=== PATIENT | female | born 1950 | race Caucasian/White ===

== ENCOUNTER 2016-11-12 13:21 | Emergency (ER) | payer OTHER ==
--- NOTE | 2016-11-12 14:16 | EDPHY ---
H & P Time Seen by Provider: 11/12/16 13:45 HPI/ROS: CHIEF COMPLAINT: Episode of unresponsiveness. HISTORY OF PRESENT ILLNESS: The patient is a 66-year old female with history of multiple TIAs and CVA, presenting with an episode of unresponsiveness. The patient was sitting in her chair and started staring off into space. She slumped to the left and appeared to have difficulty breathing. This lasted for a few seconds. Her called her name and she was able to respond immediately. Since then she has been at her baseline. The episode lasted a total of less than one minute. The patients last stroke was 3 years ago. She has persistent deficits from previous strokes, including difficulty with speech and difficulty ambulating. Of note, the patient has had URI symptoms for the past 4 days, she saw her PCP and was diagnosed with a viral URI. The cough is worsened since then and the patient's family is requesting antibiotics. No fever. REVIEW OF SYSTEMS: A comprehensive 10 point review of systems is otherwise negative aside from elements mentioned in the history of present illness. Past Medical/Surgical History: Multiple TIA, incontinence. Social History: Lives at home with and daughter. Smoking Status: Former smoker Physical Exam: General Appearance: Alert, pleasant Eyes: Pupils equal and round, no conjunctival pallor or injection ENT, Mouth: Mucous membranes moist Neck: Normal inspection Respiratory: Lungs are clear to auscultation Cardiovascular: Regular rate and rhythm Gastrointestinal: Abdomen is soft and non-tender Neurological: Able to answer yes, no questions and say her name. Follows commands. Motor/sensory intact. Gait not assessed. Skin: Warm and dry, no rash Extremities: Nontender, no pedal edema Psychiatric: Mood and affect normal Constitutional: Initial Vital Signs Temperature (C) 36.5 C 11/12/16 13:24 Heart Rate 66 11/12/16 13:24 Respiratory Rate 14 11/12/16 13:24 Blood Pressure 118/78 11/12/16 13:24 O2 Sat (%) 92 11/12/16 13:24 O2 Delivery Mode Room Air Allergies/Adverse Reactions: aspirin Allergy (Verified 04/15/16 09:43) Sulfa (Sulfonamide Antibiotics) Allergy (Verified 04/15/16 09:43) Home Medications: Medication Instructions Recorded Metoprolol Tartrate [Lopressor 25 25 mg PO BID 07/30/13 mg (*)] Omeprazole [Prilosec 20 mg] 40 mg PO BIDMEAL 07/30/13 Simvastatin [Zocor 20 mg] 20 mg PO HS 07/30/13 Clopidogrel Bisulfate [Plavix (*)] 75 mg PO DAILY 01/19/14 Losartan Potassium [Cozaar 50 mg 100 mg PO DAILY 01/19/14 (*)] Hydrochlorothiazide [HCTZ (*)] 12.5 mg PO DAILY #30 cap 01/20/14 Gabapentin [Neurontin 300 MG (*)] 300 mg PO HS 04/15/16 Azithromycin [Zithromax] 250 mg PO DAILY #6 tab 11/12/16 Medical Decision Making - Diagnostics Imaging Results: Imaging Impressions Chest X-Ray 11/12/16 13:46 Impression: 1. Atherosclerotic tortuous aorta. 2. No acute pulmonary disease. Imaging: I viewed and interpreted images myself ED Course/Re-evaluation: The patient is a 66-year-old female with history of multiple TIAs, who presents with an episode of brief unresponsiveness. Her daughter thinks that she simply fell asleep, though her does not think so. In any case, I do not suspect TIA at this time, given lack of focal neurologic symptoms and very brief duration of unresponsiveness. I think that seizure is unlikely. However, if she has recurrent symptoms, she will follow up with her primary care physician and possibly a neurologist. I will have patient followup with her primary care physician. Chest x-ray is negative for pneumonia. The patient remains asymptomatic and is at her baseline. She is able to ambulate with steady gait. She will follow up with her primary care physician. At the patient's family's request, I wrote a prescription for Zithromax. There is no evidence of pneumonia. Differential Diagnosis: Altered mental status including but not limited to hypoglycemia, infectious process, electrolyte abnormality, head injury and intoxicants. - Data Points Laboratory Results: Laboratory Results 11/12/16 14:22 11/12/16 14:22 11/12/16 11/12/16 14:22 14:22 WBC 9.96 10^3/uL H 10^3/uL (3.80-9.50) RBC 4.96 10^6/uL 10^6/uL (4.18-5.33) Hgb 15.0 g/dL g/dL (12.6-16.3) Hct 45.1 % % (38.0-47.0) MCV 90.9 fL fL (81.5-99.8) MCH 30.2 pg pg (27.9-34.1) MCHC 33.3 g/dL g/dL (32.4-36.7) RDW 13.6 % % (11.5-15.2) Plt Count 293 10^3/uL 10^3/uL (150-400) MPV 10.4 fL fL (8.7-11.7) Neut % (Auto) 49.4 % % (39.3-74.2) Lymph % (Auto) 33.7 % % (15.0-45.0) [place] % (Auto) 11.0 % % (4.5-13.0) Eos % (Auto) 4.9 % % (0.6-7.6) Baso % (Auto) 0.7 % % (0.3-1.7) Nucleat RBC Rel Count 0.0 % % (0.0-0.2) Absolute Neuts (auto) 4.91 10^3/uL 10^3/uL (1.70-6.50) Absolute Lymphs (auto) 3.36 10^3/uL H 10^3/uL (1.00-3.00) Absolute Monos (auto) 1.10 10^3/uL H 10^3/uL (0.30-0.80) Absolute Eos (auto) 0.49 10^3/uL H 10^3/uL (0.03-0.40) Absolute Basos (auto) 0.07 10^3/uL 10^3/uL (0.02-0.10) Absolute Nucleated RBC 0.00 10^3/uL 10^3/uL (0-0.01) Immature Gran % 0.3 % % (0.0-1.1) Immature Gran # 0.03 10^3/uL 10^3/uL (0.00-0.10) Sodium 145 mEq/L H mEq/L (134-144) Potassium 3.5 mEq/L mEq/L (3.5-5.2) Chloride 103 mEq/L mEq/L (97-110) Carbon Dioxide 28 mEq/l mEq/l (22-31) Anion Gap 14 mEq/L mEq/L (8-16) BUN 24 mg/dL H mg/dL (7-23) Creatinine 1.1 mg/dL H mg/dL (0.6-1.0) Estimated GFR 49 Glucose 103 mg/dL H mg/dL (70-100) Calcium 9.4 mg/dL mg/dL (8.5-10.4) Departure - Departure Disposition: Home, Routine, Self-Care Clinical Impression: Bronchitis, Episode of unresponsiveness Condition: Good Instructions: Acute Bronchitis (ED) Additional Instructions: Followup with your primary care physician for further evaluation. If patient's cough persists, start the Azithromycin. Take the full course of antibiotic as directed. Referrals: Radha Allen MD [Primary Care Provider] - As per Instructions Prescriptions: Azithromycin [Zithromax] 250 mg PO DAILY #6 tab Report Scribed for: Verónica Buchanan Report Scribed by: Conchita Estrada Date of Report: 11/12/16 Time of Report: 14:00 Physician Review and Approval Statement: 11/12/16 14:01 Portions of this note were transcribed by a medical coding instructor. I personally performed the history, physical exam, and medical decision-making; and confirmed the accuracy of the information in the transcribed note.
[2016-11-12 14:32] LABS: % IMMATURE GRANULYOCYTES 0.3 % (0.0-1.1); ABSOLUTE IMMATURE GRANULOCYTES 0.03 10^3/uL (0.00-0.10); ADD DIFF? NO; ADD MORPH? NO; ADD SCAN? NO; ATYPICAL LYMPHOCYTE FLAG 10 (0-99); FRAGMENT RBC FLAG 0 (0-99); HEMATOCRIT 45.1 % (38.0-47.0); LEFT SHIFT FLG 0 (0-99); LIPEMIA HEMOLYSIS FLAG 80 (0-99); MEAN CELL HEMOGLOBIN 30.2 pg (27.9-34.1); MEAN CELL HEMOGLOBIN CONCENTR. 33.3 g/dL (32.4-36.7); MEAN CELL VOLUME 90.9 fL (81.5-99.8); MEAN PLATELET VOLUME 10.4 fL (8.7-11.7); PLATELET CLUMPS FLAG 0 (0-99); PLATELET COUNT 293 10^3/uL (150-400); RED BLOOD CELL COUNT 4.96 10^6/uL (4.18-5.33); RED CELL DISTRIBUTION WIDTH 13.6 % (11.5-15.2)
--- NOTE | 2016-11-12 14:36 | CPEKG ---
Heart Rate: 58 RR Interval: 1034 P-R Interval: 220 QRSD Interval: 102 QT Interval: 460 QTC Interval: 452 P [place]: 44 QRS [place]: 2 T Wave [place]: 68 EKG Severity - ABNORMAL ECG - EKG Impression: SINUS RHYTHM EKG Impression: FIRST DEGREE AV BLOCK EKG Impression: BORDERLINE T ABNORMALITIES, ANTERIOR LEADS Electronically Signed By: Verónica Buchanan 12-Nov-2016 20:28:37
[2016-11-12 14:52] LABS: ANION GAP 14 mEq/L (8-16); CALCIUM 9.4 mg/dL (8.5-10.4); CARBON DIOXIDE 28 mEq/l (22-31); CHLORIDE 103 mEq/L (97-110); CREATININE 1.1 mg/dL (0.6-1.0); GLOMERULAR FILTRATION RATE 49; GLUCOSE 103 mg/dL (70-100); POTASSIUM 3.5 mEq/L (3.5-5.2); SODIUM 145 mEq/L (134-144)
[2016-11-12 15:23] VITALS: BP 118/74; PULSE 80; RESP 16; TEMP 97.9; O2SAT 94
== END 2016-11-12 15:23 | disposition home or self-care (01) ==
DX: R40.1 Stupor (principal); J20.9 Acute bronchitis, unspecified; Z87.891 Personal history of nicotine dependence

== ENCOUNTER → 2018-10-10 | Outpatient (CLI) | payer OTHER ==
[~2018-10-10] MED LIST: IOPAMIDOL (ISOVUE-300) 100 ML BTL ONE
== END ==
LOC: FIMAGING 15:09
PROVIDERS: ATTEND Urology
DX: R31.0 Gross hematuria (principal); N13.2 Hydronephrosis with renal and ureteral calculous obstruction; N28.89 Other specified disorders of kidney and ureter
CPT/HCPCS: 74178; Q9967

== ENCOUNTER 2018-10-13 05:45 | Day surgery (SDC) | payer OTHER ==
[2018-10-13] MEDS ORDERED: VANCOMYCIN HCL/NORMAL SALINE 250 ML IV ONE (06:19)
[2018-10-13] MEDS ORDERED: PIPERACILLIN/TAZO 3.375 GM/DEX 50 ML IV ONE ×2 (06:19→08:45)
[2018-10-13] MEDS ORDERED: LR 1,000 ML IV ONE (06:25)
--- NOTE | 2018-10-13 07:07 | PDANEPAE ---
ANE History of Present Illness cystoscopy, ureteral stent ANE Past Medical History - Cardiovascular History Hx Hypertension: Yes Hx Arrhythmias: No Hx Chest Pain: No Hx Coronary Artery / Peripheral Vascular Disease: Yes Hx CHF / Valvular Disease: No Hx Palpitations: No Cardiovascular History Comment: left bundle branch block - Pulmonary History Hx COPD: No Hx Asthma/Reactive Airway Disease: No Hx Recent Upper Respiratory Infection: No Hx Oxygen in Use at Home: No Hx Sleep Apnea: No Sleep Apnea Screening Result - Last Documented: Negative - Neurologic History Hx Cerebrovascular Accident: Yes Hx Seizures: No Hx Dementia: No Neurologic History Comment: CVA , left sided weakness, only soft foods, chokes easily, difficulty to understand speech ,. fractured skull with fall 45 years ago history of TIA's - Endocrine History Hx Diabetes: No - Renal History Hx Renal Disorders: Yes Renal History Comment: kidney stone current and history of stone, wears depends , cloudy urine - Liver History Hx Hepatic Disorders: No - Neurological & Psychiatric Hx Hx Neurological and Psychiatric Disorders: No - Cancer History Hx Cancer: No - Congenital Disorder History Hx Congenital Disorders: No - GI History Hx Gastrointestinal Disorders: No Gastrointestinal History Comment: bleeding ulcers history - Other Health History Other Health History: missing all teeth, no dentures, bruises easily - Chronic Pain History Chronic Pain: No (unable to state pain level) - Surgical History Prior Surgeries: ulcer repair, kidney stone removal ANE Review of Systems Review of systems is: negative Review of Systems: - Exercise capacity METS (RN): 2 METS ANE Patient History - Allergies Allergies/Adverse Reactions: aspirin Allergy (Verified 10/12/18 14:48) Other-Enter Comments meperidine Allergy (Verified 10/12/18 14:48) Unknown Sulfa (Sulfonamide Antibiotics) Allergy (Verified 10/12/18 14:48) Unknown - Home Medications Home medications: home medication list seen and reviewed Home Medications: Metoprolol Tartrate [Lopressor 25 mg (*)] BID 07/30/13 [Last Taken 10/13/18] Omeprazole [Prilosec 20 mg] BIDMEAL 07/30/13 [Last Taken 10/13/18] Simvastatin [Zocor 20 mg] HS 07/30/13 [Last Taken 10/12/18] Clopidogrel Bisulfate [Plavix (*)] DAILY 01/19/14 [Last Taken 10/12/18] Losartan Potassium [Cozaar 50 mg (*)] DAILY 01/19/14 [Last Taken 10/13/18] Gabapentin [Neurontin 300 MG (*)] HS 04/15/16 [Last Taken 04/14/16] Doxycycline Calcium 10/12/18 [Last Taken 10/13/18] Hydrochlorothiazide [HCTZ (*)] DAILY 10/12/18 [Last Taken 10/12/18] - NPO status NPO Status: no food or drink >8 hours NPO Since - Liquids (Date): 10/12/18 NPO Since - Liquids (Time): 21:00 NPO Since - Solids (Date): 10/12/18 NPO Since - Solids (Time): 21:30 - Anes Hx Anes Hx: no prior problems - Smoking Hx Smoking Status: Former smoker - Family Anes Hx Family Anes Hx: none Family Hx Anesthesia Complications: none ANE Labs/Vital Signs - Vital Signs Vital Signs: reviewed preoperatively; see RN documention for details Blood Pressure: 134/87 Heart Rate: 57 Respiratory Rate: 18 O2 Sat (%): 93 Height: 162.56 cm Weight: 74.843 kg ANE Physical Exam - Airway Neck exam: FROM Mallampati Score: Class 1 Mouth exam: poor dentition - Pulmonary Pulmonary: no respiratory distress - Cardiovascular Cardiovascular: regular rate and rhythym - ASA Status ASA Status: III ANE Anesthesia Plan Anesthesia Plan: GA w LMA
[2018-10-13] MEDS ORDERED: LIDOCAINE 2% JELLY 20 ML (UROJECT) ONE (07:14)
[2018-10-13] MEDS ORDERED: IOPAMIDOL (ISOVUE-M 300) 15 ML VIAL ONE (07:15)
--- NOTE | 2018-10-13 07:19 | PDHPUP ---
History & Physical Update H&P update statement: This history and physical update is based on an assessment of the patient which was completed after admission or registration (within 24 hours), but prior to the surgery/procedure. H&P update: H&P reviewed & patient examined, no change in patient's condition since H&P completed
[2018-10-13] MEDS ORDERED: PROPOFOL 200 MG/20 ML VIAL ONE (07:29)
[2018-10-13] MEDS ORDERED: ONDANSETRON 4 MG/2 ML VIAL ONE (07:29)
[2018-10-13] MEDS ORDERED: DEXAMETHASONE 4 MG/ML VIAL ONE (07:29)
[2018-10-13] MEDS ORDERED: LIDOCAINE 2% 100 MG/5 ML SYR ONE (07:29)
[2018-10-13] MEDS ORDERED: fentaNYL 100 MCG/2 ML INJ ONE (07:29)
[2018-10-13] MEDS ORDERED: OPIUM/BELLADONNA ALKALO SUPP PR ONE (07:32)
[2018-10-13] MEDS ORDERED: ePHEDrine SULFATE 25 MG/5 ML SYR ONE (07:46)
[2018-10-13] MEDS ORDERED: PHENYLEPHRINE HCL 100 MCG/ML SYR ONE (07:53)
[2018-10-13] MEDS ORDERED: ONDANSETRON 4 MG/2 ML VIAL IVP PRN (07:57)
[2018-10-13] MEDS ORDERED: NALOXONE HCL 0.4 MG/ML INJ IVP PRN (07:57)
[2018-10-13] MEDS ORDERED: HYDROCODONE/APAP 5/325 TAB PO PRN (07:57)
[2018-10-13] MEDS ORDERED: DEXAMETHASONE 4 MG/ML VIAL IVP PRN (07:57)
[2018-10-13] MEDS ORDERED: LABETALOL HCL 5 MG/ML 20 ML MDV IVP PRN (07:57)
[2018-10-13] MEDS ORDERED: oxyCODONE IR 5 MG TAB PO PRN (07:57)
[2018-10-13] MEDS ORDERED: fentaNYL 100 MCG/2 ML INJ IVP PRN (07:57)
--- NOTE | 2018-10-13 07:57 | POSTANESTH ---
Post Anesthetic Evaluation Cardiovascular Status: Similar to Pre-Op Cond Respiratory Status: Similar to Pre-op Cond. Level of Consciousness/Mental Status: Can Participate in Eval, Moderately Sleepy Pain Control: Adequate, Prn Tx Ordered Nausea/Vomiting Control: Adequate, Prn Tx Ordered Complications Possibly Related to Anesthesia: None Noted
--- NOTE | 2018-10-13 09:22 | POSTOPPROG ---
Post Op Note Date of Operation: 10/13/18 Surgeon: Tereza Chávez Anesthesiologist: Matthew Anesthesia: LMA Pre-op Diagnosis: right renal stone, obstruction, UTI Post-op Diagnosis: same Indication: right renal stone, obstruction, UTI Procedure: cysto, Rstent, Right RGP, fluoro Findings: obstructing stone and multiple other stones Inf/Abcess present in the surg proc area at time of surgery?: Yes Depth: Organ Space (right collecting system) EBL: Minimal Complications: none, pt tolerated procedure well Drains: Other (pepe) Specimen(s): urine from bladder and also from bladder after stent placed
[2018-10-13 09:36] VITALS: BP 124/68
--- NOTE | 2018-10-13 10:29 | CPEKG ---
Test Reason : OPEN Blood Pressure : / mmHG Vent. Rate : 093 BPM Atrial Rate : 000 BPM P-R Int : 084 ms QRS Dur : 179 ms QT Int : 498 ms P-R-T Axes : 000 -18 160 degrees QTc Int : 620 ms Atrial fibrillation IVCD, consider atypical LBBB baseline artifact Confirmed by Jarvis Jin ([id number]) on 10/13/2018 10:28:54 AM Referred By: Tereza Chávez Confirmed By:Jarvis Jin
--- NOTE | 2018-10-13 23:03 | GOP ---
[f rep st] OPERATIVE REPORT DATE OF OPERATION: 10/13/2018 SURGEON: Tereza Chávez MD ANESTHESIA: LMA. ANESTHESIOLOGIST: Dr. Daley. PREOPERATIVE DIAGNOSIS: Right obstructing renal stone, urinary tract infection. POSTOPERATIVE DIAGNOSIS: Right obstructing renal stone, urinary tract infection. PROCEDURE PERFORMED: Cystoscopy, right ureteral stent placement, right retrograde pyelogram and intr aoperative fluoroscopy. FINDINGS: Obstructing stone and multiple other stones seen easily on fluoroscopy. Retrograde demons trated poor drainage from the right collecting system. It was a challenge getting a wire around the stone, but I was able to finally advance the 5-British open-ended catheter and move past the stone, wh ich allowed the wire to get into the collecting system to place a stent. Purulent-appearing urine. SPECIMENS: Urine from the bladder and then from the bladder after the stent was placed. ESTIMATED BLOOD LOSS: Minimal. INDICATIONS: A very large 2.5 cm renal stone that was obstructing the right collecting system with r ecurrent proteus and Staphylococcus epidermidis UTIs. DESCRIPTION OF PROCEDURE: The patient was taken back to the cystoscopy suite, placed on the cystosco py table in a supine position. General anesthesia induced without complication. Time-out performed. Core measures satisfied, including placement of a Heath Hugger, SCDs and administration of vancomyci n and Zosyn antibiotics per the sensitivities. She was brought to the end of the table, placed in a dorsal lithotomy position. All pressure points padded. Genitalia draped and prepped in standard violeta gical fashion with Betadine. Rigid cystoscope easily cannulated the urethral meatus, advanced into t he bladder. Cole cystoscopy performed, and there were no lesions, cellules, trabeculations or abnorma lities. The right ureteral orifice was identified. A 5-British open-ended catheter was advanced thro ugh the cystoscope along with a Glidewire, and the Glidewire cannulated the right ureteral orifice. An attempt at placement of the wire into the right collecting system was done. The wire kept bouncin g off the large renal stone on the right that was easily visible on fluoroscopy. It would not advanc e on its own. I advanced a 5-British open-ended catheter up to the level of the stone and then passed the stone, and then I was able to place the wire after this. I then removed the wire, did a retrogr yen and did demonstrate that my wire was indeed in the collecting system, and also it was a poorly-dr aining hydronephrotic collecting system. I then readvanced the wire into the 5-British open-ended cat heter and knew that my wire was now within the right renal pelvis with fluoroscopy. I removed the 5- British opening catheter leaving the wire in place and then placed a 6-British multivariable stent with a nice curl in the renal pelvis and a nice curl in the bladder. I did take initial urine sample wit h my initial placement of the cystoscope and then at the end, I drained the bladder and then took mor e sample that was in the bladder that was draining from the right stent. It was very purulent and I wanted to make sure I captured that urine that was above the stone and sent these two separately. Th e patient did well during the procedure. She was awoken from anesthesia and transferred to PACU in g ood condition. COMPLICATIONS: None. /[id number]/MODL
== END 2018-10-13 10:06 | disposition home or self-care (01) ==
LOC: COP 05:45 → EDSTATUS 07:30 → FSGY 10:06
PROVIDERS: ATTEND Urology
PROC: 0T768DZ Dilation of Right Ureter with Intraluminal Device, Via Natural or Artificial Opening Endoscopic (ICD-10-PCS; principal; 2018-10-13 07:30)
DX: N20.0 Calculus of kidney (principal); N39.0 Urinary tract infection, site not specified
CPT/HCPCS: 52332; 76000; 93005; C1758; C1769; C2625; J1100; J2001; J2370; J2405; J2543; J2704; J3010; J3370; Q9967

== ENCOUNTER 2018-10-20 05:31 | Day surgery (SDC) | payer OTHER ==
[2018-10-20] MEDS ORDERED: PIPERACILLIN/TAZO 4.5 GM/DEX 100 ML IV ONE (06:00)
[2018-10-20] MEDS ORDERED: VANCOMYCIN HCL/NORMAL SALINE 250 ML IV ONE (06:00)
[2018-10-20] MEDS ORDERED: LR 1,000 ML IV ONE (06:04)
[2018-10-20] MEDS ORDERED: LIDOCAINE 1% 2 ML INJ ID PRN (06:04)
[2018-10-20] MEDS ORDERED: IOPAMIDOL (ISOVUE-M 300) 15 ML VIAL ONE (07:00)
[2018-10-20] MEDS ORDERED: LIDOCAINE 2% JELLY 20 ML (UROJECT) ONE (07:00)
--- NOTE | 2018-10-20 07:06 | PDANEPAE ---
ANE History of Present Illness here for ureteroscopy ANE Past Medical History - Cardiovascular History Hx Hypertension: Yes Hx Arrhythmias: No Hx Chest Pain: No Hx Coronary Artery / Peripheral Vascular Disease: Yes Hx CHF / Valvular Disease: No Hx Palpitations: No Cardiovascular History Comment: left bundle branch block - Pulmonary History Hx COPD: No Hx Asthma/Reactive Airway Disease: No Hx Recent Upper Respiratory Infection: No Hx Oxygen in Use at Home: No Hx Sleep Apnea: No Sleep Apnea Screening Result - Last Documented: Negative - Neurologic History Hx Cerebrovascular Accident: Yes Hx Seizures: No Hx Dementia: No Neurologic History Comment: CVA , left sided weakness, only soft foods, chokes easily, difficulty to understand speech ,. fractured skull with fall 45 years ago history of TIA's - Endocrine History Hx Diabetes: No - Renal History Hx Renal Disorders: Yes Renal History Comment: HAS INDWELLING CATHETER CURRENTLY DUE TO INFECTION. kidney stone current and history of stone, wears depends, cloudy urine - Liver History Hx Hepatic Disorders: No - Neurological & Psychiatric Hx Hx Neurological and Psychiatric Disorders: No - Cancer History Hx Cancer: No - Congenital Disorder History Hx Congenital Disorders: No - GI History Hx Gastrointestinal Disorders: Yes Gastrointestinal History Comment: PREV bleeding ulcers. INTERMITTENT CONSTIPATION. SOFT FOOD ONLY - Other Health History Other Health History: missing all teeth, no dentures, bruises easily - Chronic Pain History Chronic Pain: No (unable to state pain level) - Surgical History Prior Surgeries: RT CYSTOSCOPY STENT PLACEMENT. ulcer repair, kidney stone removal ANE Review of Systems Review of systems is: negative Review of Systems: - Exercise capacity METS (RN): 2 METS ANE Patient History - Allergies Allergies/Adverse Reactions: aspirin Allergy (Verified 10/12/18 14:48) Other-Enter Comments meperidine Allergy (Verified 10/12/18 14:48) Unknown Sulfa (Sulfonamide Antibiotics) Allergy (Verified 10/12/18 14:48) Unknown - Home Medications Home medications: home medication list seen and reviewed Home Medications: Metoprolol Tartrate [Lopressor 25 mg (*)] PO BID 07/30/13 [Last Taken 10/19/18 18:00] Omeprazole [Prilosec 20 mg] BID 07/30/13 [Last Taken 10/19/18 18:00] Simvastatin [Zocor 20 mg] PO HS 07/30/13 [Last Taken 10/19/18 18:00] Clopidogrel Bisulfate [Plavix (*)] PO DAILY 01/19/14 [Last Taken 10/19/18 08:00] Losartan Potassium [Cozaar 50 mg (*)] PO DAILY 01/19/14 [Last Taken 10/19/18 08: 00] Doxycycline Calcium BID 10/12/18 [Last Taken 10/19/18 08:00] Hydrochlorothiazide [HCTZ (*)] PO DAILY 10/12/18 [Last Taken 10/19/18 08:00] levOFLOXACIN HS 10/18/18 [Last Taken 10/19/18 18:00] - NPO status NPO Status: no food or drink >8 hours NPO Since - Liquids (Date): 10/19/18 NPO Since - Liquids (Time): 23:00 NPO Since - Solids (Date): 10/19/18 NPO Since - Solids (Time): 23:00 - Smoking Hx Smoking Status: Former smoker - Family Anes Hx Family Hx Anesthesia Complications: none ANE Labs/Vital Signs - Labs Result Diagrams: 10/20/18 06:32 - Vital Signs Vital Signs: reviewed preoperatively; see RN documention for details Blood Pressure: 118/75 Heart Rate: 82 Respiratory Rate: 21 O2 Sat (%): 94 Height: 162.56 cm Weight: 74.843 kg ANE Physical Exam - Airway Neck exam: FROM Mallampati Score: Class 1 Mouth exam: dentures - Pulmonary Pulmonary: no respiratory distress - Cardiovascular Cardiovascular: regular rate and rhythym - ASA Status ASA Status: III ANE Anesthesia Plan Anesthesia Plan: GA w LMA
[2018-10-20] MEDS ORDERED: ALBUTEROL 3 ML DEYVIAL IH PRN (07:10)
[2018-10-20] MEDS ORDERED: NS 500 ML IV PRN (07:10)
[2018-10-20] MEDS ORDERED: fentaNYL 100 MCG/2 ML INJ IVP PRN (07:10)
[2018-10-20] MEDS ORDERED: ONDANSETRON 4 MG/2 ML VIAL IVP PRN (07:10)
[2018-10-20] MEDS ORDERED: NALOXONE HCL 0.4 MG/ML INJ IVP PRN (07:10)
[2018-10-20] MEDS ORDERED: DEXAMETHASONE 4 MG/ML VIAL IVP PRN (07:10)
--- NOTE | 2018-10-20 07:11 | PDHPUP ---
History & Physical Update H&P update statement: This history and physical update is based on an assessment of the patient which was completed after admission or registration (within 24 hours), but prior to the surgery/procedure. H&P update: H&P reviewed & patient examined, changes noted (Pt here for R URS, laser, stent for tx of her stone. Has been on appropritate abx. )
[2018-10-20] MEDS ORDERED: PROPOFOL 200 MG/20 ML VIAL ONE ×2 (07:33→07:56)
[2018-10-20] MEDS ORDERED: fentaNYL 100 MCG/2 ML INJ ONE (07:56)
[2018-10-20] MEDS ORDERED: ePHEDrine SULFATE 25 MG/5 ML SYR ONE ×2 (08:00→08:36)
[2018-10-20] MEDS ORDERED: PHENYLEPHRINE HCL 100 MCG/ML SYR ONE ×2 (08:36)
--- NOTE | 2018-10-20 10:58 | POSTOPPROG ---
Post Op Note Date of Operation: 10/20/18 Surgeon: Tereza Chávez Anesthesiologist: Link Pre-op Diagnosis: large obsrtructing renal stone, recurrent UTI, kidney obstruction Post-op Diagnosis: same Indication: large renal stone, recurrent UTI, kidney obstruction Procedure: cysto,RURS,laser lithotripsy,stent,basket ext stone Findings: difficult laser lithotripsy 2.5cm stone, hard stone Inf/Abcess present in the surg proc area at time of surgery?: No EBL: Minimal Complications: none, pt tolerated procedure well Drains: Other (pepe) Specimen(s): stone
--- NOTE | 2018-10-20 11:08 | POSTANESTH ---
Post Anesthetic Evaluation Cardiovascular Status: Normal, Stable Respiratory Status: Normal, Stable Level of Consciousness/Mental Status: Moderately Sleepy Pain Control: Adequate, Prn Tx Ordered Nausea/Vomiting Control: Adequate, Prn Tx Ordered Complications Possibly Related to Anesthesia: None Noted
[2018-10-20 12:27] VITALS: BP 127/75
--- NOTE | 2018-10-20 23:17 | GOP ---
[f rep st] OPERATIVE REPORT DATE OF OPERATION: 10/20/2018 SURGEON: Tereza Chávez MD ANESTHESIOLOGIST: Dr. Maza. PREOPERATIVE DIAGNOSIS: Large obstructing right renal stone, recurrent urinary tract infection. POSTOPERATIVE DIAGNOSIS: Large obstructing right renal stone, recurrent urinary tract infection. PROCEDURE PERFORMED: Cystoscopy, right ureteroscopy, laser lithotripsy, stent, basket extraction of stone, intraoperative fluoroscopy. FINDINGS: This was a difficult laser lithotripsy as it was a very large 2.5 cm stone. It was extrem juliette hard. I went through 3 different laser fibers as the hard stone would wear down the laser fiber. I did multiple strippings of the laser as well. 90% of the stone was lasered but visualization got very difficult toward the end and so I decided at that point to return in 1 to 2 weeks for a second- look. SPECIMENS: Stone. ESTIMATED BLOOD LOSS: Minimal. INDICATIONS: The patient has had recurrent complicating multiple multiresistant urinary tract infect ions. CT scan was performed demonstrating a 2.5 cm ureteral pelvis stone that was completely obstruc ting the right kidney. She has a history of stroke and thus stopping her anticoagulation is not advi sed and thus I recommended a staged ureteroscopy, laser lithotripsy procedure. DESCRIPTION OF PROCEDURE: The patient was seen in preoperative holding area where vancomycin was sta rted and Zosyn would be started. This is due to multiple organisms in her urine that had multiple re sistances. She was taken back to the operating room, placed on the operating room table in the supin e position. General anesthesia induced without complication. A time-out performed. Core measures s atisfied, including placement of a Heath Hugger, SCDs, and verification that antibiotics had been deli michael. She was brought to the end of the table, placed in a dorsal lithotomy position. All pressure points padded. Genitalia draped and prepped in the standard surgical fashion with Betadine. A rigi d cystoscope cannulated the urethral meatus easily and was advanced atraumatically into the bladder. A grasper was used externalized the distal end of the stent. The wire was placed through the lumen of the stent with fluoroscopic guidance. The stent was removed leaving the wire in place. A 2nd wir e was placed with cystoscopic and fluoroscopic guidance, then a 12/14 ureteral access sheath was adva nced without difficulty over a wire with fluoroscopic guidance with the tip reaching the right ureter opelvic junction. A scope was advanced into the sheath and right away I encountered the very large s tone that was clearly visible on fluoroscopy. Laser fiber was advanced to the stone and stone was sy stematically lasered. We did go through 3 separate fibers; a 200 micron, 273 micron, and a 525 micro n fiber. I also did several strippings of the laser to maintain the length of the fiber during the p rocedure. After about 90% of the stone being lasered, I was having significant difficulty seeing due to the debris and the dust. She also had additional stones in her lower pole that I had not yet marisol ated. At this point, due to difficulty with visualization, I decided to basket a few of the stones a nd so I removed the laser fiber, advanced the basket into the renal pelvis. I basketed a few stones but then, at this point, most of it was dust, except for the remaining larger fragments and at this p oint, I decided to remove the scope and the sheath, leaving the wire in place, and then placed a 6-Fr ench multivariable stent with fluoroscopic and cystoscopic guidance with a nice curl in the renal pel vis and a nice curl in the bladder. I did do a retrograde prior to placing the stent and noted a jason y dilated renal pelvis and dilated and blunted calices. The stent was in place. Her bladder was emp tied and a Oneil catheter was placed after instillation of lidocaine jelly and at this point the proc edure was considered complete. She was awoken from anesthesia and transferred to PACU in good condit ion. COMPLICATIONS: None. The patient tolerated the procedure well. DRAINS: A Oneil. /[id number]/MODL
== END 2018-10-20 12:33 | disposition home or self-care (01) ==
LOC: FSGY 05:31
PROVIDERS: ATTEND Urology
PROC: 0TP98DZ Removal of Intraluminal Device from Ureter, Via Natural or Artificial Opening Endoscopic (ICD-10-PCS; principal; 2018-10-20 07:15)
PROC: 0TF38ZZ Fragmentation in Right Kidney Pelvis, Via Natural or Artificial Opening Endoscopic (ICD-10-PCS; principal; 2018-10-20 07:15)
PROC: BT1DYZZ Fluoroscopy of Right Kidney, Ureter and Bladder using Other Contrast (ICD-10-PCS; principal; 2018-10-20 07:15)
PROC: 0TC08ZZ Extirpation of Matter from Right Kidney, Via Natural or Artificial Opening Endoscopic (ICD-10-PCS; principal; 2018-10-20 07:15)
PROC: 0T768DZ Dilation of Right Ureter with Intraluminal Device, Via Natural or Artificial Opening Endoscopic (ICD-10-PCS; principal; 2018-10-20 07:15)
DX: N20.0 Calculus of kidney (principal); E78.5 Hyperlipidemia, unspecified; I10 Essential (primary) hypertension; I44.7 Left bundle-branch block, unspecified; Z87.440 Personal history of urinary (tract) infections; Z86.73 Personal history of transient ischemic attack (TIA), and cerebral infarction without residual deficits; Z87.442 Personal history of urinary calculi; Z87.891 Personal history of nicotine dependence; Z88.2 Allergy status to sulfonamides
CPT/HCPCS: 52310; 52356; 76000; C1758; C1769; C1894; 82365-90; C2625; J2370; J2543; J2704; J3010; J3370; Q9967

== ENCOUNTER 2018-10-24 14:29 | Inpatient (IN) | payer OTHER ==
[2018-10-24 15:57] LABS: PLATELET COUNT 295 10^3/uL (150-400)
--- NOTE | 2018-10-24 16:00 | EDPHY ---
H & P Stated Complaint: Increased weakness x 2 days Time Seen by Provider: 10/24/18 15:42 HPI/ROS: CHIEF COMPLAINT: Difficulty walking HISTORY OF PRESENT ILLNESS: 68-year-old female with prior CVA presents with difficulty walking. She lives at home with her family, who are her primary caregivers. She usually is able to ambulate only with assistance. Over the past 2 days, her gait has been worse than usual and she seems to list to the right. She is less talkative than usual, but otherwise seems at her normal baseline mental status. She is able to answer questions usually, but difficult to understand. She was able to feed herself today using her right hand. She underwent a urologic procedure 3 days ago for kidney stones, including stent placement and Oneil catheter placement. She is currently on doxycycline and Levaquin. REVIEW OF SYSTEMS: complete 10 point ROS reviewed and is negative except for the noted elements in the HPI Source: Family - Personal History Tetanus Vaccine Date: 10< - Medical/Surgical History Hx Asthma: No Hx Chronic Respiratory Disease: No Hx Diabetes: No Hx Cardiac Disease: No Hx Renal Disease: No Hx Cirrhosis: No Hx Alcoholism: No Hx HIV/AIDS: No Hx Splenectomy or Spleen Trauma: No Other PMH: HTN, HCH, TIA, GERD, stroke 1 2012, stroke# 20 November 2013. w/ right sided effected, renal stones stent placed x 1 week ago - Social History Smoking Status: Former smoker Alcohol Use: Sober Drug Use: None - Physical Exam Exam: General Appearance: Alert, speech is slurred, answers questions appropriately Eyes: Pupils equal and round, no conjunctival pallor ENT, Mouth: Mucous membranes moist Neck: Normal inspection Respiratory: Lungs are clear to auscultation Cardiovascular: Regular rate and rhythm Gastrointestinal: Abdomen is soft and nontender Neurological: Alert, motor 5/5 throughout, unable to transfer unassisted Skin: Warm and dry Extremities: Nontender, no pedal edema Psychiatric: Flat affect Constitutional: Initial Vital Signs Temperature (C) 36.7 C 10/24/18 14:39 Heart Rate 87 10/24/18 14:39 Respiratory Rate 18 10/24/18 14:39 Blood Pressure 130/94 H 10/24/18 14:39 O2 Sat (%) 94 10/24/18 14:39 O2 Delivery Mode Room Air Allergies/Adverse Reactions: aspirin Allergy (Verified 10/12/18 14:48) Other-Enter Comments meperidine Allergy (Verified 10/12/18 14:48) Unknown Sulfa (Sulfonamide Antibiotics) Allergy (Verified 10/12/18 14:48) Unknown Home Medications: Medication Instructions Recorded Metoprolol Tartrate [Lopressor 25 25 mg PO BID 07/30/13 mg (*)] Omeprazole [Prilosec 20 mg] 20 mg PO BID 07/30/13 Clopidogrel Bisulfate [Plavix (*)] 75 mg PO DAILY 01/19/14 Hydrochlorothiazide [HCTZ (*)] 12.5 mg PO DAILY 10/12/18 Sennosides/Docusate Sodium 1 each PO BID PRN #60 tablet 10/13/18 [Senna-S Tablet] Doxycycline Hyclate [Vibramycin 100 mg PO BID 10/24/18 100 MG (*)] Losartan Potassium 100 mg PO DAILY 10/24/18 Simvastatin [Zocor] 20 mg PO HS 10/24/18 levOFLOXACIN [Levofloxacin] 500 mg PO DAILY 10/24/18 Medical Decision Making - Diagnostics EKG Interpretation: EKG interpreted by me reveals normal sinus rhythm, left bundle branch block. Interpretation: Abnormal EKG Imaging Results: Imaging Impressions Chest X-Ray 10/24/18 15:33 Impression: Stable chest. Marked tortuosity of the thoracic aorta. Head CT 10/24/18 15:46 Impression: 1. No acute intracranial hemorrhage, subdural hematoma, or evidence of acute ischemia. 2. Atrophy, moderate white matter disease, and old lacunar infarctions in the tammie and bilateral basal ganglia are unchanged. Findings discussed with Emergency Department physician, Verónica Buchanan M.D., on October 24, 2018 at 1633. Imaging: Discussed imaging studies w/ call worker Radiologist, I viewed and interpreted images myself ED Course/Re-evaluation: This patient presents with difficulty walking x 2 days.. The patient was barely able to transfer from the wheelchair to the ED bed. Neuro exam is nonfocal, no evidence of CVA. Laboratory studies reveal hypokalemia. This certainly could be causing the patient's weakness. Potassium 10 mEq IV and 20 mEq orally given. EKG reveals no evidence of ischemia or dysrhythmia or signs of hypokalemia. Patient was stable throughout her emergency department stay. She has a Oneil catheter and place due to recent urologic procedure and is on antibiotics. Urinalysis is pending. The hospitalist service was consulted for admission. Differential Diagnosis: Differential diagnosis includes though is not limited to CVA, infectious etiology such as UTI or pneumonia, electrolyte abnormality, hypoglycemia, intoxicants - Data Points Laboratory Results: Laboratory Results 10/24/18 15:45 10/24/18 15:45 10/24/18 10/24/18 10/24/18 16:47 15:48 15:45 WBC RBC Hgb Hct MCV MCH MCHC RDW Plt Count MPV Neut % (Auto) Lymph % (Auto) Mor[place] % (Auto) Eos % (Auto) Baso % (Auto) Nucleat RBC Rel Count Absolute Neuts (auto) Absolute Lymphs (auto) Absolute Monos (auto) Absolute Eos (auto) Absolute Basos (auto) Absolute Nucleated RBC Immature Gran % Immature Gran # Sodium 141 mEq/L mEq/L (135-145) Potassium 2.7 mEq/L L* mEq/L (3.5-5.2) Chloride 106 mEq/L mEq/L (97-110) Carbon Dioxide 24 mEq/l mEq/l (22-31) Anion Gap 11 mEq/L mEq/L (6-14) BUN 28 mg/dL H mg/dL (7-23) Creatinine 1.0 mg/dL mg/dL (0.6-1.0) Estimated GFR 55 Glucose 111 mg/dL H mg/dL (70-100) Calcium 9.5 mg/dL mg/dL (8.5-10.4) POC Troponin I 0.01 ng/mL ng/mL (0.00-0.08) NT-Pro-B Natriuret Pep 683 pg/mL H pg/mL (0-125) Urine Color YELLOW Urine Appearance MODERATELY TURBID Urine pH 5.0 (5.0-7.5) Ur Specific [place] 1.018 (1.002-1.030) Urine Protein 2+ H (NEGATIVE) Urine Ketones NEGATIVE (NEGATIVE) Urine Blood 3+ H (NEGATIVE) Urine Nitrate NEGATIVE (NEGATIVE) Urine Bilirubin NEGATIVE (NEGATIVE) Urine Urobilinogen NEGATIVE EU EU (0.2-1.0) Ur Leukocyte Esterase 3+ H (NEGATIVE) Urine RBC 50-182 /hpf H /hpf (0-3) Urine WBC 50-182 /hpf H /hpf (0-3) Ur Epithelial Cells TRACE /lpf /lpf (NONE-1+) Urine Mucus 2+ /lpf H /lpf (NONE-1+) Urine Yeast PRESENT /hpf /hpf (NONE SEEN) Urine Glucose NEGATIVE (NEGATIVE) 10/24/18 15:45 WBC 13.48 10^3/uL H 10^3/uL (3.80-9.50) RBC 4.78 10^6/uL 10^6/uL (4.18-5.33) Hgb 14.6 g/dL g/dL (12.6-16.3) Hct 43.0 % % (38.0-47.0) MCV 90.0 fL fL (81.5-99.8) MCH 30.5 pg pg (27.9-34.1) MCHC 34.0 g/dL g/dL (32.4-36.7) RDW 14.1 % % (11.5-15.2) Plt Count 295 10^3/uL 10^3/uL (150-400) MPV 10.1 fL fL (8.7-11.7) Neut % (Auto) 69.5 % % (39.3-74.2) Lymph % (Auto) 19.4 % % (15.0-45.0) Morrill % (Auto) 9.9 % % (4.5-13.0) Eos % (Auto) 0.4 % L % (0.6-7.6) Baso % (Auto) 0.4 % % (0.3-1.7) Nucleat RBC Rel Count 0.0 % % (0.0-0.2) Absolute Neuts (auto) 9.34 10^3/uL H 10^3/uL (1.70-6.50) Absolute Lymphs (auto) 2.62 10^3/uL 10^3/uL (1.00-3.00) Absolute Monos (auto) 1.34 10^3/uL H 10^3/uL (0.30-0.80) Absolute Eos (auto) 0.06 10^3/uL 10^3/uL (0.03-0.40) Absolute Basos (auto) 0.06 10^3/uL 10^3/uL (0.02-0.10) Absolute Nucleated RBC 0.00 10^3/uL 10^3/uL (0-0.01) Immature Gran % 0.4 % % (0.0-1.1) Immature Gran # 0.06 10^3/uL 10^3/uL (0.00-0.10) Sodium Potassium Chloride Carbon Dioxide Anion Gap BUN Creatinine Estimated GFR Glucose Calcium POC Troponin I NT-Pro-B Natriuret Pep Urine Color Urine Appearance Urine pH Ur Specific [place] Urine Protein Urine Ketones Urine Blood Urine Nitrate Urine Bilirubin Urine Urobilinogen Ur Leukocyte Esterase Urine RBC Urine WBC Ur Epithelial Cells Urine Mucus Urine Yeast Urine Glucose Medications Given: Atorvastatin Calcium (Lipitor) 10 mg PO HS JAYNE Stop: 04/22/19 20:59 Last Admin: 10/24/18 20:13 Dose: 10 mg Fluconazole (Diflucan) 200 mg PO DAILY JAYNE Stop: 11/23/18 18:14 Last Admin: 10/24/18 18:49 Dose: 200 mg Sodium Chloride (Ns) 1,000 mls @ 125 mls/hr IV CONT JAYNE Stop: 04/22/19 17:29 Last Admin: 10/24/18 18:54 Dose: 1,000 mls Ampicillin Sodium/Sulbactam (Sodium 3 gm/ Sodium Chloride) 100 mls @ 200 mls/ hr IV Q6H JAYNE PRN Reason: Protocol Stop: 11/23/18 18:59 Last Admin: 10/24/18 20:11 Dose: 100 mls Metoprolol Tartrate (Lopressor) 25 mg PO BID JAYNE Stop: 04/22/19 20:59 Last Admin: 10/24/18 20:13 Dose: 25 mg Pantoprazole Sodium (Protonix) 40 mg PO BID JAYNE Stop: 04/22/19 20:59 Last Admin: 10/24/18 20:13 Dose: 40 mg Discontinued Medications Potassium Chloride (Potassium Cl 10 Meq (Premix)) 100 mls @ 100 mls/hr IV EDNOW ONE Stop: 10/24/18 17:16 Last Admin: 10/24/18 16:29 Dose: 100 mls Potassium Chloride (Potassium Chloride Oral Liquid) 20 meq PO EDNOW ONE Stop: 10/24/18 16:18 Last Admin: 10/24/18 16:36 Dose: 20 meq Point of Care Test Results: Chemistry 10/24/18 15:48 POC Troponin I 0.01 ng/mL ng/mL (0.00-0.08) Departure - Departure Disposition: [facility] Inpatient Acute Clinical Impression: Generalized weakness, Hypokalemia Condition: Fair
[2018-10-24] MEDS ORDERED: POTASSIUM Cl (KCl) 100 ML IV ONE (16:17)
[2018-10-24] MEDS ORDERED: POTASSIUM CL 20 MEQ/15 ML UDCUP PO ONE ×2 (16:17→21:56)
[2018-10-24] MEDS ORDERED: HYDROCODONE/APAP 5/325 TAB PO PRN (17:17)
[2018-10-24] MEDS ORDERED: ACETAMINOPHEN 325 MG TAB PO PRN (17:17)
[2018-10-24] MEDS: FLUCONAZOLE 100 MG TAB PO SCH (18:49)
[2018-10-24] MEDS: NS 1,000 ML IV SCH (18:54)
[2018-10-24] MEDS ORDERED: SENNOSIDES/DOCUSATE SODIUM TAB PO PRN (19:49)
[2018-10-24] MEDS: AMPICILLIN/SULBACTAM 3 GM in NS 100 ML IV SCH (20:11)
[2018-10-24] MEDS: PANTOPRAZOLE SODIUM 40 MG TAB PO SCH (20:13)
[2018-10-24] MEDS: METOPROLOL TARTRATE 25 MG TAB PO SCH (20:13)
[2018-10-24] MEDS: ATORVASTATIN CALCIUM 10 MG TAB PO SCH (20:13)
--- NOTE | 2018-10-24 21:07 | CPEKG ---
Test Reason : OPEN Blood Pressure : / mmHG Vent. Rate : 080 BPM Atrial Rate : 083 BPM P-R Int : 155 ms QRS Dur : 142 ms QT Int : 454 ms P-R-T Axes : 017 -16 140 degrees QTc Int : 524 ms Sinus rhythm Left bundle branch block Confirmed by Verónica Dent ([id number]) on 10/24/2018 9:07:25 PM Referred By: VERÓNICA DENT Confirmed By:Verónica Dent
[2018-10-24] MEDS: POTASSIUM Cl (KCl) 100 ML IV SCH (23:08)
--- NOTE | 2018-10-24 23:40 | GHP ---
[f rep st] HISTORY AND PHYSICAL DATE OF ADMISSION: 10/24/2018 CHIEF COMPLAINT: Increased weakness at home. HISTORY OF PRESENT ILLNESS: The patient is a pleasant 68-year-old female with a past medical history of prior CVA, hypertension, and recent nephrolithiasis requiring intervention, who was brought to [facility] by her daughter on 10/24/2018, after she had noted her to be having incr easing difficulty with ambulation and weakness. She had recent surgery here at [facility] on 10/20/2018 to address a large 2.5 cm obstructing right renal stone. Please refer to operati ve notes by Dr. Chávez from 10/20/2018, but the procedure sounds somewhat difficult. She was disch arged with a Oneil catheter and the plan was for additional intervention later this month. Her hanna p in the emergency room was notable for 3+ leukocyte esterase on her urinalysis, negative nitrite, 3+ blood also noted. There was evidence of yeast as well. The patient had a recent urine culture from 10/13/2018, which showed evidence of Enterococcus faecalis, lactobacillus, and Staph epi. The patie nt was taking Levaquin and doxycycline after her recent procedure. PAST MEDICAL HISTORY: History of CVA with uncertain residual deficits. The patient's daughter descr ibes that she ambulates with assistance only. Hypertension, history of nephrolithiasis, gastroesopha geal reflux disease. PAST SURGICAL HISTORY: Recent cystoscopy, ureteroscopy, laser lithotripsy, stent, basket extraction of stone. MEDICATIONS: Plavix 75 mg daily, doxycycline 100 mg twice a day, hydrochlorothiazide 12.5 mg daily, Levaquin 500 mg daily, losartan 100 mg daily, metoprolol tartrate 25 mg twice a day, omeprazole 20 mg twice a day, simvastatin 20 mg nightly. ALLERGIES: Aspirin, meperidine, sulfa drugs. FAMILY HISTORY: No prior history of CVAs in the family. SOCIAL HISTORY: The patient is reportedly . She is a former tobacco user. Code status was r eviewed with the patient and her daughter and she states full resuscitation code status. REVIEW OF SYSTEMS: CONSTITUTIONAL: No complaints of any fevers or chills. ENT: No recent upper re spiratory illnesses. CARDIOVASCULAR: No complaints of chest pains or syncopal episodes. RESPIRATOR Y: No shortness of breath or productive cough. GI: No nausea or vomiting. No diarrhea or constipa tion. : She has a Oneil catheter in place. NEUROLOGIC: No complaints of headaches or focal weak ness. HEMATOLOGIC: No history of any deep vein thrombosis or pulmonary embolism. PSYCHIATRIC: No history of anxiety or depression. ENDOCRINE: No report of any heat intolerance or polyuria. SKIN: No new skin rashes. MUSCULOSKELETAL: No focal joint pains. PHYSICAL EXAM: VITAL SIGNS: Temperature 36.7, blood pressure 140/85, heart rate 107, respirations 1 8, saturating 94% on room air. GENERAL: The patient appears comfortable. Nontoxic. She is not jason y interactive and daughter provides much of the history. HEENT: Extraocular movements are intact. No scleral icterus. NECK: Supple. No adenopathy appreciated. CHEST: Clear with normal respirator y effort. HEART: Regular. No murmurs noted. ABDOMEN: Nontender with palpation. Normal bowel ayan nds. Nondistended. : Oneil catheter in place with slightly blood tinged appearing urine. EXTREM ITIES: No significant edema. NEUROLOGIC: No facial asymmetry appreciated. Patient able to wiggle toes and lift heels off the bed, and 4/5 hand grasp. LABORATORIES: White blood cell count 13, hemoglobin 14, platelets 295. Sodium is 140, potassium 2.7 , chloride 106, bicarb 24, BUN 28, creatinine 1.0, glucose 111. Troponin 0.01. BNP 683. IMAGING: Chest x-ray shows stable chest, marked tortuosity of the thoracic aorta. Head CT: No acut e intracranial hemorrhage. ASSESSMENT/PLAN: 1. Sepsis. The patient does meet criteria for systemic inflammatory response syndrome based upon ta chycardia and leukocytosis. Her lactic acid level is normal. Her mentation seems to be at its basel ine from what I can gather from talking to the family. Source possibly urinary. 2. Urinary tract infection, possible. Complicated with presence of Oneil catheter and nephrolithias is which h.as been incompletely removed at this time. Urine culture has been ordered. Based upon re cent culture and sensitivities, I have started the patient on Unasyn. Consider expanding antibiotic therapy if she clinically declines. Otherwise, await culture and sensitivity report. I have reviewe d her case with her nurse today and given orders to replace the Oneil catheter that she came into the hospital with. 3. Hypokalemia, replaced. Repeat was not much improved this evening, so I have written for an addit ional 40 IV and 40 oral. Magnesium within normal limits. 4. History of cerebrovascular accident. The patient is on Plavix and statin therapy. 5. Hypertension, mildly elevated readings here in the hospital. Continue to monitor with the curren t hydrochlorothiazide, losartan, and metoprolol. If she needs additional therapy, consider increasin g the hydrochlorothiazide to 25 mg daily, which may help mitigate nephrolithiasis formation. 6. History of nephrolithiasis. Plan was for repeat intervention later this month. 7. Deep venous thrombosis prophylaxis. Lovenox. Monitor closely for any worsening hematuria. DISPOSITION: The patient lives with her children and seems to have good home support. I recommend a dmission under inpatient status. /[id number]/MODL
[2018-10-25] MEDS: POTASSIUM Cl (KCl) 100 ML IV SCH ×3 (00:12→03:13)
[2018-10-25] MEDS: NS 1,000 ML IV SCH (01:23)
[2018-10-25] MEDS: AMPICILLIN/SULBACTAM 3 GM in NS 100 ML IV SCH ×4 (02:25→18:30)
[2018-10-25 04:59] LABS: PLATELET COUNT 254 10^3/uL (150-400)
[2018-10-25] MEDS: LOSARTAN POTASSIUM 50 MG TAB PO SCH (08:31)
[2018-10-25] MEDS: METOPROLOL TARTRATE 25 MG TAB PO SCH ×2 (08:31→19:59)
[2018-10-25] MEDS: CLOPIDOGREL BISULFATE 75 MG TAB PO SCH (08:31)
[2018-10-25] MEDS: PANTOPRAZOLE SODIUM 40 MG TAB PO SCH ×2 (08:31→20:00)
[2018-10-25] MEDS: HYDROCHLOROTHIAZIDE 12.5 MG CAP PO SCH (08:31)
[2018-10-25] MEDS: FLUCONAZOLE 100 MG TAB PO SCH (08:37)
[2018-10-25] MEDS: POTASSIUM CL 20 MEQ/15 ML UDCUP PO SCH (08:42)
--- NOTE | 2018-10-25 09:13 | PDMN ---
Medical Necessity Medical necessity: [facility] M160 Sepsis, A-3 days: 68 yo presents w/ increased weakness and difficulty ambulating in setting of recent complicated renal stone removal on 10/20/18. Pt w/ pepe cath in place from last surg. Pt was on PO antibx post lithotripsy as outpt. Eval reveals sepsis, UTI and hypokalemia. K+ 2.7, dropped to 2.6 in evening despite replacement. IV antibx and IVF started. Meets [facility] IP criteria for sepsis as parenteral antimicrobial regimen must be implemented on inpatient basis, will need >2MN for IV antibx. Meets also IP criteria for general admission w/ severe electrolyte imbalance (K<3) with weakness. Hx CVA
[2018-10-25] MEDS: ENOXAPARIN 40 MG/0.4 ML SYR SC SCH (11:14)
--- NOTE | 2018-10-25 14:32 | HOSPPROG ---
Hospitalist Progress Note Assessment/Plan: 68-year-old female brought to the hospital with complaint weakness. 1st encounter, chart reviewed. Discussed plan of care with patient as well as family. # urinary tract infection Patient has chronic Oneil Changed at time of admission Urine culture pending Sees Dr Chávez Continue IV Unasyn until culture results # kidney stone Scheduled for removal on the Continue supportive management # sepsis Resolved # hypokalemia Per patient's family she is supposed to be on potassium replacement She has not been getting that She is unable to swallow the pills She was supposed to have a followup appointment with her primary care physician but forgot Will continue replacement during the hospital course # history of CVA At baseline per family # hypertension Continue home meds # disposition Patient requires further IV antibiotics will remain in the hospital overnight Could potentially discharge in 1-2 days Subjective: Feeling better. Eating. No specific complaints. Objective: Vital Signs Temp Pulse Resp BP Pulse Ox 36.6 C 60 14 124/68 H 96 10/25/18 12:10 10/25/18 12:10 10/25/18 12:10 10/25/18 12:10 10/25/18 12:10 Laboratory Results 10/25/18 04:16 10/25/18 04:16 10/24/18 10/25/18 10/26/18 05:59 05:59 05:59 Intake Total 200 238 Output Total 900 Balance -700 238 - Physical Exam Constitutional: appears nourished, not in pain, chronically ill appearing Eyes: PERRL, anicteric sclera, EOMI Ears, Nose, Mouth, Throat: moist mucous membranes, hearing normal, ears appear normal Cardiovascular: No JVD, No tachycardia, No edema Respiratory: no respiratory distress, no rales or rhonchi, reduced air movement Gastrointestinal: normoactive bowel sounds, No tenderness, No ascites Skin: warm, normal color, No mottled Musculoskeletal: no muscle tenderness, no joint effusions, generalized weakness Neurologic: AAOx3 Psychiatric: interacting appropriately, not anxious, not encephalopathic ICD10 Worksheet Patient Problems: Problems Problem Status Onset TIA (transient ischemic attack) Acute UTI (urinary tract infection) Acute Generalized weakness Acute Hypokalemia Acute
--- NOTE | 2018-10-25 15:57 | ASMTCMCOM ---
CM Note CM Note Notes: CM spoke with pt in the room and with pt's dtr Nancy with whom pt lives. Pt admitted for sepsis and hypokalemia from UTI and kidney stone, with a hx of CVA. OT evaluated pt and states she is at her baseline, family provides 24/7 care in the home and recommending discharging to family's care. Pt's dtr and pt also agree with this plan. PT eval pending. CM to follow. D/C Plan: Home with family Date Signed: 10/25/2018 03:56 PM Electronically Signed By:Rosemary Ku
[2018-10-25] MEDS: ATORVASTATIN CALCIUM 10 MG TAB PO SCH (20:00)
--- NOTE | 2018-10-25 22:35 | PDCONSULT ---
Wool Sampler Note: Consult requested by Dr. Riana Tan [facility]: recent surgery HPI 68F w hx stroke and w recurrent complicated multiresistant and multiorganism UTIs, found to have very large right renal stone burden with large 2.5cm obstructing right renal pelvis stone. Admitted for AMS, found to have low serum potassium. K now corrected and she is doing much better, talking again and both and daughter say she is back to her baseline. Pepe apparently drained significant stone sediment after her laser lithotripsy last week. Stone burden so large, staged procedure is scheduled for repeat laser lithotripsy to clear her of stone. I have had her on two abx for full coverage - doxycycine and levaquin --given her past urine cultures. PMH/PSH/FH/SH reviewed, as stated in HPI, otherwise noncontributory. ROS 10pt ROS performed, as stated in HPI, otherwise neg PE AFVSS Gen NAD, Alert, baseline responsiveness CV regular Lungs Normal effort Abd soft pepe in place, urine clear Labs reviewed A/P AMS now resolved, K corrected. Recurrent complicated UTIs R Renal stones that are most certainly colonized- stent in place. OK to remove pepe as she empties on her own well. Plan for 2nd stone procedure in 2 weeks. I would like her on abx up through surgery as these stones are most definitely colonized w the organisms that have grown in her urine. Her urine, despite multiple kehinde, has been a catheterized sample or from the renal pelvis, all of which I myself have collected. I appreciate [facility] being on board to help with PO abx for DC. Appreciate hospitalist management. Will continue to follow and be available for questions. Tereza Chávez MD [facility]
[2018-10-26] MEDS: AMPICILLIN/SULBACTAM 3 GM in NS 100 ML IV SCH ×2 (00:09→05:55)
[2018-10-26 05:06] LABS: PLATELET COUNT 274 10^3/uL (150-400)
[2018-10-26 07:50] VITALS: BP 121/81
[2018-10-26] MEDS: POTASSIUM CL 20 MEQ/15 ML UDCUP PO SCH (09:13)
[2018-10-26] MEDS: FLUCONAZOLE 100 MG TAB PO SCH (09:14)
[2018-10-26] MEDS: CLOPIDOGREL BISULFATE 75 MG TAB PO SCH (09:14)
[2018-10-26] MEDS: ENOXAPARIN 40 MG/0.4 ML SYR SC SCH (09:14)
[2018-10-26] MEDS: LOSARTAN POTASSIUM 50 MG TAB PO SCH (09:14)
[2018-10-26] MEDS: METOPROLOL TARTRATE 25 MG TAB PO SCH (09:14)
[2018-10-26] MEDS: HYDROCHLOROTHIAZIDE 12.5 MG CAP PO SCH (09:14)
[2018-10-26] MEDS: PANTOPRAZOLE SODIUM 40 MG TAB PO SCH (09:14)
--- NOTE | 2018-10-26 12:35 | GCON ---
[f rep st] CONSULTATION INFECTIOUS DISEASE CONSULTATION. DATE OF CONSULTATION: 10/26/2018 REQUESTING PROVIDERS: Riana Carrasco NP, and Tereza Chávez MD. REASON FOR CONSULTATION: Polymicrobial urine culture results with indwelling nephrolithiasis. HISTORY OF PRESENT ILLNESS: Patient is a 68-year-old female with a past medical history of nephrolit hiasis with planned repeat procedure for stone removal in approximately 2 weeks who I am asked to see in consultation for antibiotic recommendations in the setting of polymicrobial urine cultures. The patient has been receiving suppressive antibiotic therapy with doxycycline and levofloxacin. She has not experienced dysuria, urgency, frequency, or hematuria. She has not had fevers, chills, night sw eats, abdominal pain, or flank pain. On 10/20/2018, the patient underwent lithotripsy with removal o f approximately 90% of large stone burden with the stone measuring 2.5 cm; stent was placed as part o f her procedure as well. She is anticipated to have residual stone removal within the next 2 weeks. She has been receiving suppressive doxycycline and levofloxacin with some associated diarrhea, but o therwise well tolerated. Initial urine cultures in August showed Proteus mirabilis; subsequent cultur es some of which were obtained at time of her procedures have grown Staphylococcus epidermidis, lacto bacillus, and Enterococcus faecalis. The patient, during this hospital stay, had been admitted for a ltered mental status and hypokalemia, both of which have now resolved. Given the above findings, I a m now asked to see the patient to assist in her ongoing management. PAST MEDICAL HISTORY: Nephrolithiasis, stroke, peptic ulcer disease, hypertension. PAST SURGICAL HISTORY: Ureteroscopy with laser lithotripsy as above. CURRENT MEDICATIONS: Unasyn 3 g IV q.6 hours, Unity as needed, Lipitor 10 mg p.o. at bedtime, Plavix 75 mg p.o. daily, Lovenox 40 mg subcu daily, fluconazole 200 mg p.o. daily, hydrochlorothiazide 12.5 mg p.o. daily, Cozaar 100 mg p.o. daily, metoprolol 25 mg p.o. twice daily, Protonix 40 mg p.o. twic e daily, potassium chloride 40 mEq p.o. daily. ALLERGIES: Sulfonamides, meperidine; avoids aspirin due to prior ulcer disease. SOCIAL HISTORY: Patient is a former smoker. No alcohol or drug use. FAMILY HISTORY: TIA. REVIEW OF SYSTEMS: Outside that noted in the HPI, the remainder of 10-system review is unremarkable other than perianal rash. PHYSICAL EXAMINATION: VITAL SIGNS: Temperature 36.6, heart rate 68, respiratory rate 16, blood pres sure 121/81, oxygen saturation 92% on room air. GENERAL: Patient is a thin female in no acute distr ess, sitting in a wheelchair. HEENT: There is no scleral icterus, conjunctival injection, or conjun ctival petechiae. Oropharynx shows moist mucous membranes. Patient is edentulous. No nasal dischar ge. NECK: Supple without palpable lymphadenopathy or thyromegaly. CHEST: Clear to auscultation bi laterally without adventitious sounds. Respiratory effort is normal. CARDIOVASCULAR: Regular rate and rhythm without murmurs, gallops, or rubs. ABDOMEN: Soft, nontender, nondistended. No palpable organomegaly. Bowel sounds are present. MUSCULOSKELETAL: No cyanosis, clubbing, or edema. BACK: No CVA tenderness. SKIN: No stigmata of endocarditis. Skin is warm and dry to touch. NEUROLOGIC: Patient is alert, interacts appropriate with examiner. LABORATORY DATA: White blood cell count 13.3, hematocrit 39.7, platelets 274, neutrophils 58%, lymph ocytes 28%. Serum creatinine is 0.8, potassium 3.1. Urinalysis showed 50 to 182 red blood cells and 50 to 182 white blood cells. Blood cultures x2 sets are no growth. Urine culture is preliminarily no growth. Recent urine cultures and susceptibilities reviewed noting that Staphylococcus epidermidi s is beta-lactam resistant; Enterococcus faecalis is tetracycline resistant, but ampicillin susceptib le. IMPRESSION: Large stone burden nephrolithiasis with polymicrobial urine cultures including cultures obtained at time of procedures: Given the patient's residual stone disease, she will be at risk for development of complicated urinary tract infection or urosepsis as stones likely remain colonized. W ill require stone removal, which is currently planned as definitive therapy. Recommend patient recei ve Augmentin (request suspension) 800 mg orally twice daily and continues doxycycline 100 mg orally t wice daily through procedure and for 2 days post procedure. Unasyn could be used for perioperative p rophylaxis. This regimen will provide activity against all isolated pathogens. Penicillin derivativ es are preferred for lactobacillus. Side effects of Augmentin including potential for diarrhea revmoustapha easley. RECOMMENDATIONS: 1. Augmentin 800 mg p.o. twice daily x2 days post stone removal. 2. Doxycycline 100 mg orally twice daily x2 days post stone removal. 3. Discontinue levofloxacin. 4. Notify my office for development of fever or urinary tract symptoms or intolerance of antibiotics . 5. Thank you for this consultation. /[id number]/MODL
--- NOTE | 2018-10-26 13:00 | GDS ---
[f rep st] DISCHARGE SUMMARY DISCHARGE DIAGNOSES: 1. Acute encephalopathy. 2. Hypokalemia. 3. History of complicated urinary tract infection. 4. History of cerebrovascular accident. 5. Hypertension. 6. Sepsis. 7. History of kidney stone. CONSULTATIONS: 1. Tereza Chávez MD. 2. Corey Haney MD of Infectious Disease. PHYSICAL EXAM: GENERAL: The patient is alert. VITAL SIGNS: Afebrile at 36.6, pulse is 68, respira tory rate 16, blood pressure is 121/81, she is saturating 90% on room air. I have seen evaluated the patient on the day of discharge. HOSPITAL COURSE: The patient is a 68-year-old female who presented to the hospital with complaints o f weakness. She was evaluated and diagnosed with: 1. Hypokalemia. At time of admission the patient's potassium was significantly low. The patient is supposed to be taking outpatient oral potassium replacement, however, has forgotten and had not foll owed up with her primary care physician as previously prescribed. Her potassium has been replaced du ring this hospitalization and she has been discharged with 40 mEq of liquid potassium daily as she is unable to swallow the potassium pills. I have provided a prescription for her. She is to follow up with her primary care physician next week for further laboratory evaluation regarding her potassium. 2. Recurrent urinary tract infection. The patient's urine culture demonstrated no growth at this ti me. She did receive a consultation from Dr. Corey Haney of Infectious Disease, given the fact that she has complicated urinary tract infections. 3. History of kidney stone. The patient has a large, complicated kidney stone. This will receive f urther intervention on November 10, with potential complete removal. 4. Sepsis in the setting of potential acute infection and has resolved. 5. History of cerebrovascular accident. The patient is at her baseline. 6. Hypertension. Home medications have been continued and this is stable prior to disposition. DISCHARGE: The patient will be discharged home independently after reviewing her history of urinary tract infections. DISCHARGE MEDICATIONS: Include Augmentin 800 mg p.o. twice daily as well as continuation of her doxy cycline. She will discontinue the Levaquin that was previously ordered. She will also initiate oral potassium in the outpatient setting. FOLLOWUP: Primary care physician next week for further laboratory evaluations [facility] TIME SPENT WITH PATIENT: I spent greater than 35 minutes in the care, coordination, and management o f the patient's disposition. /[id number]/MODL
== END 2018-10-26 11:41 | disposition home or self-care (01) | DRG 698 ==
LOC: F3E 18:38
PROVIDERS: ADMIT Internal Medicine; ATTEND Internal Medicine
DX: T83.511A Infection and inflammatory reaction due to indwelling urethral catheter, initial encounter (principal); A41.9 Sepsis, unspecified organism; N39.0 Urinary tract infection, site not specified; E87.6 Hypokalemia; I10 Essential (primary) hypertension; N20.0 Calculus of kidney; Z86.73 Personal history of transient ischemic attack (TIA), and cerebral infarction without residual deficits
CPT/HCPCS: 84484-ER; 96365; 96366; 97116-GP; 97162-GP; J0295; J1650; J3480

== ENCOUNTER 2018-11-03 09:24 | Day surgery (SDC) | payer OTHER ==
[2018-11-03] MEDS ORDERED: PIPERACILLIN SODIUM/TAZOBACTAM 4.5 GM in NS 100 ML IV ONE (10:59)
[2018-11-03] MEDS ORDERED: VANCOMYCIN HCL/NORMAL SALINE 250 ML IV ONE (10:59)
--- NOTE | 2018-11-03 12:09 | PDHPUP ---
History & Physical Update H&P update statement: This history and physical update is based on an assessment of the patient which was completed after admission or registration (within 24 hours), but prior to the surgery/procedure. H&P update: H&P reviewed & patient examined, no change in patient's condition since H&P completed (Here for 2nd laser lithotripsy for clearance of stone. K normal now. christina Elizondo per cx sens. )
[2018-11-03] MEDS ORDERED: LR 1,000 ML IV ONE (12:14)
--- NOTE | 2018-11-03 12:14 | PDANEPAE ---
ANE Past Medical History - Cardiovascular History Hx Hypertension: Yes Hx Arrhythmias: No Hx Chest Pain: No Hx Coronary Artery / Peripheral Vascular Disease: Yes Hx CHF / Valvular Disease: No Hx Palpitations: No Cardiovascular History Comment: left bundle branch block - Pulmonary History Hx COPD: No Hx Asthma/Reactive Airway Disease: No Hx Recent Upper Respiratory Infection: No Hx Oxygen in Use at Home: No Hx Sleep Apnea: No Sleep Apnea Screening Result - Last Documented: Negative - Neurologic History Hx Cerebrovascular Accident: Yes Hx Seizures: No Hx Dementia: No Neurologic History Comment: CVA , left sided weakness, only soft foods, chokes easily, difficulty to understand speech ,. fractured skull with fall 45 years ago history of TIA's - Endocrine History Hx Diabetes: No - Renal History Hx Renal Disorders: Yes Renal History Comment: NEPHROLITHIASIS. 10/24/18HOSPITALIZED FOLLOWING LAST PROCEDURE 10/20/18 - W/SEPSIS, UTI,HYPOKALEMIA. wears depends - Liver History Hx Hepatic Disorders: No - Neurological & Psychiatric Hx Hx Neurological and Psychiatric Disorders: No - Cancer History Hx Cancer: No - Congenital Disorder History Hx Congenital Disorders: No - GI History Hx Gastrointestinal Disorders: Yes Gastrointestinal History Comment: GERD. PREV bleeding ulcers. INTERMITTENT CONSTIPATION. SOFT FOOD ONLY - Other Health History Other Health History: HX - DVT. missing all teeth, no dentures, bruises easily - Chronic Pain History Chronic Pain: No (unable to state pain level) - Surgical History Prior Surgeries: URETEROSCOPY W/LASER LITHOTRIPSY. RT CYSTOSCOPY STENT PLACEMENT. ulcer repair, kidney stone removal ANE Review of Systems Review of Systems: - Exercise capacity METS (RN): 2 METS ANE Patient History - Allergies Allergies/Adverse Reactions: aspirin Allergy (Verified 10/12/18 14:48) Other-Enter Comments meperidine Allergy (Verified 10/12/18 14:48) Unknown Sulfa (Sulfonamide Antibiotics) Allergy (Verified 10/12/18 14:48) Unknown - Home Medications Home Medications: Metoprolol Tartrate [Lopressor 25 mg (*)] 25 mg PO BID 07/30/13 [Last Taken ] Omeprazole [Prilosec 20 mg] 20 mg PO BID 07/30/13 [Last Taken 11/02/18 19:00] Clopidogrel Bisulfate [Plavix (*)] 75 mg PO DAILY 01/19/14 [Last Taken 11/02/18 09:00] Hydrochlorothiazide [HCTZ (*)] 12.5 mg PO DAILY 10/12/18 [Last Taken 11/02/18 09 :00] Doxycycline Hyclate [Vibramycin 100 MG (*)] 100 mg PO BID 10/24/18 [Last Taken 11/02/18 20:00] Losartan Potassium 100 mg PO DAILY 10/24/18 [Last Taken 11/02/18 08:00] Simvastatin [Zocor] 20 mg PO HS 10/24/18 [Last Taken 11/02/18 18:00] - NPO status NPO Since - Liquids (Date): 11/02/18 NPO Since - Liquids (Time): 23:00 NPO Since - Solids (Date): 11/02/18 NPO Since - Solids (Time): 23:00 - Smoking Hx Smoking Status: Former smoker - Family Anes Hx Family Hx Anesthesia Complications: none ANE Labs/Vital Signs - Vital Signs Blood Pressure: 128/96 Heart Rate: 73 Respiratory Rate: 16 O2 Sat (%): 99 Height: 162.56 cm Weight: 72.575 kg ANE Physical Exam - Airway Mallampati Score: Class 3 - ASA Status ASA Status: III ANE Anesthesia Plan Anesthesia Plan: GA w LMA
[2018-11-03] MEDS ORDERED: LIDOCAINE 2% JELLY 20 ML (UROJECT) ONE (12:24)
[2018-11-03] MEDS ORDERED: IOPAMIDOL (ISOVUE-370) 150 ML BTL IV ONE ×2 (12:24→13:07)
[2018-11-03] MEDS ORDERED: IOPAMIDOL (ISOVUE-M 300) 15 ML VIAL ONE (12:26)
[2018-11-03] MEDS ORDERED: fentaNYL 100 MCG/2 ML INJ ONE (12:29)
[2018-11-03] MEDS ORDERED: MIDAZOLAM 2 MG/2 ML VIAL ONE (12:29)
[2018-11-03] MEDS ORDERED: PROPOFOL 200 MG/20 ML VIAL ONE (12:30)
[2018-11-03] MEDS ORDERED: ONDANSETRON 4 MG/2 ML VIAL ONE (12:32)
[2018-11-03] MEDS ORDERED: LIDOCAINE 2% JELLY 6 ML TOPICAL SYR ONE (12:32)
[2018-11-03] MEDS ORDERED: METOCLOPRAMIDE 10 MG/2 ML VIAL ONE (12:32)
[2018-11-03] MEDS ORDERED: ePHEDrine SULFATE 25 MG/5 ML SYR ONE (12:48)
[2018-11-03] MEDS ORDERED: OPIUM/BELLADONNA ALKALO SUPP PR ONE (15:31)
--- NOTE | 2018-11-03 15:41 | POSTOPPROG ---
Post Op Note Date of Operation: 11/03/18 Surgeon: Tereza Chávez Anesthesiologist: Dr. Call Anesthesia: GET(General Endotracheal) Pre-op Diagnosis: right renal stones, recurrent urine infections Post-op Diagnosis: same Indication: right renal stones, recurrent urine infections Procedure: cysto,RURS,laser lithotripsy,stent,basket ext stone, fluoro Findings: all stone lasered into dust or fragments Inf/Abcess present in the surg proc area at time of surgery?: No EBL: Minimal Complications: none, pt tolerated procedure well Specimen(s): stone
[2018-11-03] MEDS ORDERED: LR 500 ML IV PRN (15:44)
[2018-11-03] MEDS ORDERED: fentaNYL 100 MCG/2 ML INJ IVP PRN (15:44)
[2018-11-03] MEDS ORDERED: ONDANSETRON 4 MG/2 ML VIAL IVP PRN (15:44)
[2018-11-03] MEDS ORDERED: NALOXONE HCL 0.4 MG/ML INJ IVP PRN (15:44)
--- NOTE | 2018-11-03 15:45 | POSTANESTH ---
Post Anesthetic Evaluation Cardiovascular Status: Normal, Stable Respiratory Status: Normal, Stable Level of Consciousness/Mental Status: Can Participate in Eval Pain Control: Adequate, Prn Tx Ordered Nausea/Vomiting Control: Adequate, Prn Tx Ordered Complications Possibly Related to Anesthesia: None Noted
[2018-11-03 17:08] VITALS: BP 120/68
--- NOTE | 2018-11-03 20:58 | GOP ---
[f rep st] OPERATIVE REPORT DATE OF OPERATION: 11/03/2018 SURGEON: Tereza Chávez MD ANESTHESIA: General. ANESTHESIOLOGIST: Dr. Diamond. PREOPERATIVE DIAGNOSIS: Right renal stones, recurrent urinary tract infections. POSTOPERATIVE DIAGNOSIS: Right renal stones, recurrent urinary tract infections. PROCEDURE PERFORMED: Cystoscopy, right ureteroscopy, laser lithotripsy, basket extraction of stone, placement of a stent and intraoperative fluoroscopy. FINDINGS: All stone was lasered into dust or fragments. There remained some larger fragments in the lower poles, but due to obscured visualization from stone dust as well as hematuria, basketing was d ifficult, and I elected to bring her back for another repeat look in a week. ESTIMATED BLOOD LOSS: Minimal. INDICATIONS: The patient is a very pleasant 68-year-old female with a history of stroke on anticoagu lation who presented to me with recurrent complicated multi-organismal UTIs, and investigation found an extremely large 2.5 cm renal pelvis stone, complete obstruction of the right collecting system fro m this large stone as well as other large stones in the collecting system. I initially placed a sten t in her to decompress for interior design assistant with the infection and then this will be my 2nd surgery lasering the massive amount of stone that she has on the right side. At the last visit, I felt I got a good lasering of the larger stone, but due to obscured visualization from the fragmentation of the dust, I elected to bring her back today for a second-look ureteroscopy. The rationale, risks, and benefits were discussed in detail with the patient and her family, and all agreed to proceed in this 2nd urete roscopy. DESCRIPTION OF PROCEDURE: She was taken back to the cystoscopy suite, placed on the cystoscopy table in supine position. General anesthesia induced without complication. Time-out performed. Core nela sures satisfied, including placement of a Heath Hugger, SCDs and administration of vancomycin and Zosy n antibiotics per her cultures. She was brought to the end of the table, placed in a dorsal lithotom y position. All pressure points padded. Genitalia draped and prepped in the standard surgical fashi on with Betadine. A rigid cystoscope cannulated the urethral meatus and was advanced atraumatically into the bladder. The distal end of the stent was grasped with a grasper externalized. A wire was p laced through the stent with fluoroscopic and cystoscopic guidance and then a 2nd wire was placed wit h a 5-Latvian open-ended catheter and cystoscopic guidance. I then advanced an 05/03 ureteral access sheath over 1 of the wires, and it advanced easily without any friction. I then advanced a flexible ureteroscope into the renal pelvis, encountered that very large stone, and I continued to laser it wi th a 200 micron laser. I did go through 2 lasers during the procedure due to the laser tip being wor n down. I was able to completely laser, dust and fragment that larger stone, and then lower pole sto yo were difficult to access to the angle, but I was able to dust these as well as I could with the l aser. The visualization did get difficult towards the end and knowing that there was quite a bit of dust that was possibly hiding some of the larger fragments, I elected to come back next week to matt barrera to clear her of stone. Hopefully, she will pass all of that dust and make it very clear where th e basketable fragments are and need to be basketed. At the end of the procedure, I still had my safe ty wire up. I did basket out several fragments of stone and then once visualization I felt was compr omised by all the dust, I decided to bring her back for another look next week. I removed the scope and the sheath together leaving the safety wire in place and then with fluoroscopic and cystoscopic g uidance, I placed a 6-Latvian multivariable stent with over a wire. There was a nice curl in the farida l pelvis and a nice curl in the bladder. Her bladder was then emptied. Lidocaine jelly placed per u rethra and belladonna and opium suppository was placed per rectum. She did well during the entire pr ocedure, and I will see her next week for a 3rd look ureteroscopy. COMPLICATIONS: None. The patient tolerated the procedure well. /[id number]/MODL
== END 2018-11-03 17:24 | disposition home or self-care (01) ==
LOC: FSGY 09:24
PROVIDERS: ATTEND Urology
DX: N20.0 Calculus of kidney (principal); I10 Essential (primary) hypertension; I44.7 Left bundle-branch block, unspecified; I69.354 Hemiplegia and hemiparesis following cerebral infarction affecting left non-dominant side; Z87.440 Personal history of urinary (tract) infections; E87.6 Hypokalemia
CPT/HCPCS: 52356; 76000; C1758; C1769; C1894; 82365-90; C2625; J2250; J2405; J2543; J2704; J2765; J3010; J3370; Q9967

== ENCOUNTER 2018-11-09 12:46 | Day surgery (SDC) | payer OTHER ==
[2018-11-09] MEDS ORDERED: VANCOMYCIN HCL/NORMAL SALINE 250 ML IV ONE (13:43)
[2018-11-09] MEDS ORDERED: PIPERACILLIN/TAZO 4.5 GM/DEX 100 ML IV ONE (13:43)
[2018-11-09] MEDS ORDERED: LR 1,000 ML IV ONE (13:45)
[2018-11-09] MEDS ORDERED: LIDOCAINE 1% 2 ML INJ ID PRN (13:45)
[2018-11-09] MEDS ORDERED: PROPOFOL/EMULSION 500 MG/50 ML BOTTLE IV ONE ×2 (14:31→16:53)
[2018-11-09] MEDS ORDERED: fentaNYL 100 MCG/2 ML INJ ONE ×3 (14:31→17:27)
--- NOTE | 2018-11-09 15:07 | PDANEPAE ---
ANE History of Present Illness ureteralithiasis here for ureteroscopy ANE Past Medical History - Cardiovascular History Hx Hypertension: Yes Hx Arrhythmias: No Hx Chest Pain: No Hx Coronary Artery / Peripheral Vascular Disease: Yes Hx CHF / Valvular Disease: No Hx Palpitations: No Cardiovascular History Comment: left bundle branch block - Pulmonary History Hx COPD: No Hx Asthma/Reactive Airway Disease: No Hx Recent Upper Respiratory Infection: No Hx Oxygen in Use at Home: No Hx Sleep Apnea: No Sleep Apnea Screening Result - Last Documented: Negative - Neurologic History Hx Cerebrovascular Accident: Yes Hx Seizures: No Hx Dementia: No Neurologic History Comment: CVA , left sided weakness, only soft foods, chokes easily, difficulty to understand speech ,. fractured skull with fall 45 years ago history of TIA's - Endocrine History Hx Diabetes: No - Renal History Hx Renal Disorders: Yes Renal History Comment: NEPHROLITHIASIS. 10/24/18HOSPITALIZED FOLLOWING LAST PROCEDURE 10/20/18 - W/SEPSIS, UTI,HYPOKALEMIA. wears depends - Liver History Hx Hepatic Disorders: No - Neurological & Psychiatric Hx Hx Neurological and Psychiatric Disorders: No - Cancer History Hx Cancer: No - Congenital Disorder History Hx Congenital Disorders: No - GI History Hx Gastrointestinal Disorders: Yes Gastrointestinal History Comment: GERD. PREV bleeding ulcers. INTERMITTENT CONSTIPATION. SOFT FOOD ONLY - Other Health History Other Health History: HX - DVT. missing all teeth, no dentures, bruises easily - Chronic Pain History Chronic Pain: Yes (unable to state pain level) - Surgical History Prior Surgeries: URETEROSCOPY W/LASER LITHOTRIPSY. RT CYSTOSCOPY STENT PLACEMENT x3. ulcer repair, kidney stone removal ANE Review of Systems Review of Systems: - Exercise capacity METS (RN): 3 METS ANE Patient History - Allergies Allergies/Adverse Reactions: aspirin Allergy (Verified 11/08/18 11:27) Other-Enter Comments meperidine Allergy (Verified 11/08/18 11:27) Unknown Sulfa (Sulfonamide Antibiotics) Allergy (Verified 11/08/18 11:27) Unknown - Home Medications Home Medications: Metoprolol Tartrate [Lopressor 25 mg (*)] 25 mg PO BID 07/30/13 [Last Taken 11:00] Omeprazole [Prilosec 20 mg] 20 mg PO BID 07/30/13 [Last Taken 11/09/18 11:00] Clopidogrel Bisulfate [Plavix (*)] 75 mg PO DAILY 01/19/14 [Last Taken 11/08/18 08:00] Hydrochlorothiazide [HCTZ (*)] 12.5 mg PO DAILY 10/12/18 [Last Taken 11/08/18 08 :00] Losartan Potassium 100 mg PO DAILY 10/24/18 [Last Taken 11/08/18 08:00] Simvastatin [Zocor] 20 mg PO HS 10/24/18 [Last Taken 11/08/18 19:00] - NPO status NPO Status: no food or drink >8 hours NPO Since - Liquids (Date): 11/09/18 NPO Since - Liquids (Time): 08:00 NPO Since - Solids (Date): 11/08/18 NPO Since - Solids (Time): 11:00 - Anes Hx Anes Hx: no prior problems - Smoking Hx Smoking Status: Former smoker - Alcohol Use Alcohol Use: None - Family Anes Hx Family Hx Anesthesia Complications: none ANE Labs/Vital Signs - Vital Signs Blood Pressure: 127/82 Heart Rate: 69 Respiratory Rate: 16 O2 Sat (%): 95 Height: 162.56 cm Weight: 72.575 kg ANE Physical Exam - Airway Neck exam: FROM Mallampati Score: Class 2 Mouth exam: poor dentition, dentures - Pulmonary Pulmonary: no respiratory distress, clear to auscultation - Cardiovascular Cardiovascular: regular rate and rhythym, no murmur, rub, or gallop - ASA Status ASA Status: III ANE Anesthesia Plan Anesthesia Plan: GA w LMA
[2018-11-09] MEDS ORDERED: LIDOCAINE 2% JELLY 20 ML (UROJECT) ONE (15:25)
[2018-11-09] MEDS ORDERED: OPIUM/BELLADONNA ALKALO SUPP PR ONE (15:26)
[2018-11-09] MEDS ORDERED: IOPAMIDOL (ISOVUE-M 300) 15 ML VIAL ONE (15:26)
--- NOTE | 2018-11-09 15:39 | PDHPUP ---
History & Physical Update H&P update statement: This history and physical update is based on an assessment of the patient which was completed after admission or registration (within 24 hours), but prior to the surgery/procedure. H&P update: H&P reviewed & patient examined, no change in patient's condition since H&P completed (Here for completion of laser lithotripsy and removal of stone. )
[2018-11-09] MEDS ORDERED: fentaNYL 100 MCG/2 ML INJ IVP PRN (17:53)
[2018-11-09] MEDS ORDERED: NALOXONE HCL 0.4 MG/ML INJ IVP PRN (17:53)
[2018-11-09] MEDS ORDERED: HYDROCODONE/APAP 5/325 TAB PO PRN (17:53)
[2018-11-09] MEDS ORDERED: ONDANSETRON 4 MG/2 ML VIAL IVP PRN (17:53)
[2018-11-09] MEDS ORDERED: oxyCODONE IR 5 MG TAB PO PRN (17:53)
[2018-11-09] MEDS ORDERED: ACETAMINOPHEN 500 MG TAB PO PRN (17:53)
--- NOTE | 2018-11-09 17:57 | POSTANESTH ---
Post Anesthetic Evaluation Cardiovascular Status: Normal, Stable, Similar to Pre-Op Cond Respiratory Status: Similar to Pre-op Cond., Requires Airway Assist Level of Consciousness/Mental Status: Moderately Sleepy Pain Control: Adequate, Prn Tx Ordered Nausea/Vomiting Control: Adequate, Prn Tx Ordered Complications Possibly Related to Anesthesia: None Noted
--- NOTE | 2018-11-09 18:05 | POSTOPPROG ---
Post Op Note Date of Operation: 11/09/18 Surgeon: Tereza Chávez Anesthesiologist: Alecia Anesthesia: GET(General Endotracheal) Pre-op Diagnosis: right renal stones, recurrent UTIs Post-op Diagnosis: same Indication: right renal stones, recurrent UTIs Procedure: cysto, RURS,laser lithotripsy,stent, basket ext stone, RGP Findings: lower pole stones Inf/Abcess present in the surg proc area at time of surgery?: No Complications: none, pt tolerated procedure well Specimen(s): stone
[2018-11-09 19:39] VITALS: BP 125/83
--- NOTE | 2018-11-10 11:19 | GOP ---
[f rep st] OPERATIVE REPORT DATE OF OPERATION: 11/09/2018 SURGEON: Tereza Chávez MD ANESTHESIOLOGIST: Chuckie Altson MD PREOPERATIVE DIAGNOSIS: Right renal stones, recurrent urinary tract infections, history of stroke, r equirement for anticoagulation. POSTOPERATIVE DIAGNOSIS: Right renal stones, recurrent urinary tract infections, history of stroke, requirement for anticoagulation. PROCEDURE PERFORMED: The same indication. FINDINGS: Lower pole stones. SPECIMENS: Stones. INDICATIONS: The patient is a 68-year-old female with history of stroke, requirement of anticoagulat ion who presented to me with recurrent multi-resistant UTIs. She was found to have a 2-1/2 cm renal pelvis stone with complete blockage of the right collecting system, as well as multiple lower pole an d other nonobstructing stones. This was a massive amount of stone burden. She was not amenable to o ther procedural options due to her need for anticoagulation, so we had decided to do a staged uretero scopy procedure on her. She returns today for her third and hopefully final laser lithotripsy and re moval of stone. It is pertinent that all stone be able to be dusted and removed given her recurrent infection risk. The rationale, risks, and benefits, including bleeding, infection, pain, injury to t he urethra, the bladder, the right ureter, inability to remove all the stones, need for subsequent pr ocedures, injury to the ureter requiring percutaneous nephrostomy tube placement were discussed in de tail with the patient, her family, and all agreed to proceed. DESCRIPTION OF PROCEDURE: Patient was taken back to the cystoscopy suite, placed on the cystoscopy t able in supine position. General anesthesia induced without complication. Time-out performed. Core measures satisfied, including placement of Heath Hugger, SCDs administration 2 of 2 g Ancef antibioti c. She was brought in the table, placed in dorsal lithotomy position. All pressure points padded. Genitalia draped and prepped in the standard surgical fashion with Betadine. A rigid cystoscope cannulated the urethral meatus and was advanced atraumatically into the bladder. The right ureteral stent was grasped. The distal end externalized. A wire was placed through the suhail men of the stent with fluoroscopic guidance to the right collecting system. Stent was removed, leavi ng the wire in place and a second wire was placed with cystoscopic and fluoroscopic guidance into the right collecting system. Fluoroscopy demonstrated the persistent stone burden. I attempted to adva nce a 12/14-Malaysian ureteral access sheath, it did not advance easily past the iliacs. I then advance d 11/13-Malaysian access sheath and it advanced well. I got up into the collecting system with a flexib le scope and sweeney-nephroscopy performed. There were some still larger stone fragments. I used the la ser to laser these. The 11/13-Malaysian sheath was narrow and it made removal of some of the fragments difficult, so I again removed that sheath and attempted to place a 12/14-Malaysian ureteral access sheat h, and this time, it did advance smoothly and nicely with fluoroscopic guidance up into the right col lecting system. I was able to basket extract several fragments out, and what was in the lower pole t hat was difficult to extract, I just dusted this for several minutes and I dusted into complete satis faction, and I felt that this dust would pass. There were a couple of other fragments that I was luis alberto ble to basket. I did laser these and again dust them in their entirety. At the end of the procedure , there was no fragments left that I could basket. Everything else was dust and would pass on its ow n. There was some proximal ureteral edema and I would leave the stent for at least 3 weeks to allow passage of all of this dust. I did a retrograde pyelogram. There was no extravasation and I used the retrograde to make sure I go t into all the calices in the lower pole and there was no other larger stones to laser. There was a dark spot on the fluoroscopic image that was not connected to the contrast, I feel that whatever was there in terms of stone in the collecting system, it was not accessible with me and my scope, but I f eel like all the other stone burden was removed, and I was very pleased at this point with the proced ure. I did not feel that she needs to come back for further ureteroscopy at this time. At the end of the procedure, I removed the scope and the sheath together, examining the wall of the u reter. There was some proximal ureteral edema, but otherwise, the ureter looked fine. Then, the saf ety wire was still up and I used cystoscopic and fluoroscopic guidance to place a 6-Malaysian multivaria ble stent. It had a nice curl in the renal pelvis, a nice curl in the bladder. Bladder was emptied. Lidocaine jelly placed per urethra. Belladonna, opium suppository placed per rectum. At this poin t, the procedure was considered complete. She was awoken from anesthesia and transferred to PACU in good condition. NAME OF PROCEDURE: Cystoscopy, right ureteroscopy, laser lithotripsy, stent, basket extraction of st one, retrograde pyelogram, intraoperative fluoroscopy. COMPLICATIONS: No complications. /[id number]/MODL
== END 2018-11-09 19:30 | disposition home or self-care (01) ==
LOC: FSGY 12:46
PROVIDERS: ATTEND Urology
DX: N20.0 Calculus of kidney (principal); Z87.440 Personal history of urinary (tract) infections; Z86.73 Personal history of transient ischemic attack (TIA), and cerebral infarction without residual deficits; Z79.01 Long term (current) use of anticoagulants
CPT/HCPCS: 52356; 76000; C1758; C1769; C1894; 82365-90; C2625; J2543; J2704; J3010; J3370; Q9967

== ENCOUNTER 2018-12-17 16:49 | Emergency (ER) | payer OTHER | END 2018-12-17 20:40 | disposition home or self-care (01) ==